=== PATIENT | female | born 1970 | race Caucasian/White ===

== ENCOUNTER 2017-12-20 13:58 | Outpatient (CLI) | payer BC | END 2017-12-20 13:59 | disposition home or self-care (01) | LOC: BICMAMMO 13:58 | PROVIDERS: ATTEND Obstetrics & Gynecology | DX: Z12.31 Encounter for screening mammogram for malignant neoplasm of breast (principal) | CPT/HCPCS: 77063; 77067 ==

== ENCOUNTER 2018-07-06 07:32 | Outpatient (CLI) | payer BC ==
--- NOTE | 2018-07-06 09:20 | CT ---
NONCONTRAST CT LUMBAR SPINE: Date: 07/06/18 HISTORY: Lower back stiffness and bilateral hip pain. History of prior pelvic fracture from fall from horse in 2015. COMPARISON: MRI lumbar spine on 02/21/18. FINDINGS: Retroperitoneal structures demonstrate a grossly normal nonenhanced CT appearance. There is what appears to be a remote wedge-shaped compression fracture of the L4 vertebral body with irregularity of the superior end plate also seen on prior MRI examination. There is also prominent na rrowing of the intervertebral disc spaces at the L4-5 and L5-S1 levels with end plate degenerative ch anges. No subluxation is seen. There is a rounded area of lucency within the L1 vertebral body demons trating characteristics compatible with hemangioma, corresponding to findings on the MRI. L1-2 Level: There is no disc bulge or disc herniation. Central spinal canal and neural foramina are patent. L2-3 Level: There is no significant disc bulge or disc herniation. Central spinal canal and neural foramina are p atent. L3-4 Level: There is mild broad based disc osteophyte complex which results in flattening of the anterior aspect of the thecal sac with mild narrowing of the central spinal canal. There is minimal encroachment on t he right neural foramen. The left neural foramen is patent. L4-5 Level: There is prominent loss of intervertebral disc height with vacuum phenomenon in the intervertebral di sc with associated end plate degenerative changes. There are minimal facet hypertrophic changes prese nt. Mild broad based disc osteophyte complex is noted, but there is no significant narrowing of the c entral spinal canal. There is mild left and minimal right-sided neural foraminal narrowing. L5-S1 Level: There is prominent loss of intervertebral disc height with end plate degenerative changes and vacuum phenomenon in the intervertebral disc. There is mild disc osteophyte complex present at this level, b ut the central spinal canal is patent, and there is only minimal encroachment on each neural foramen. IMPRESSION: 1. Degenerative changes, predominantly involving the lower lumbar spine which do not appear to be si gnificantly progressed when compared to MRI examination on 02/21/18. 2. Findings likely related to remote injury and fracture of the L4 vertebral body. POS: [facility]
== END 2018-07-06 07:33 | disposition home or self-care (01) ==
LOC: TBSIIMAG 07:32
PROVIDERS: ATTEND Neurological Surgery
DX: M54.5 Low back pain (principal); M47.896 Other spondylosis, lumbar region
CPT/HCPCS: 72131

== ENCOUNTER 2018-09-29 09:33 | Outpatient (CLI) | payer BC ==
--- NOTE | 2018-09-29 10:20 | CT ---
CT HEAD WITHOUT CONTRAST: History: CSF leak. Comparison: None available. FINDINGS: Ventricles have normal size and position. There is no mass, hemorrhage, or infarct identified. [place] bill sinuses are well aerated. There is mild mucosal edema in the left maxillary antrum. The mastoid a ir cells are well aerated. IMPRESSION: Unremarkable CT head. POS: H
== END 2018-09-29 09:34 | disposition home or self-care (01) ==
LOC: TBSIIMAG 09:33
PROVIDERS: ATTEND Neurological Surgery
DX: G96.0 Cerebrospinal fluid leak (principal)
CPT/HCPCS: 70450

== ENCOUNTER 2018-12-07 08:56 | Emergency (ER) | payer BC ==
[2018-12-07 09:48] LABS: #Eosinphils 0.2 thou/uL (0.0-0.7); #Lymphocytes 1.3 thou/uL (1.20-3.40); #Monocytes 0.2 thou/uL (0.11-0.59); #Neutrophils 4.7 thou/uL (1.40-6.50); %Basophils 0.5 % (0.0-1.0); %Eosinophils 3.4 % (0.0-10.0); %Lymphocytes 20.1 % (21.0-51.0); %Monocytes 3.4 % (0.0-10.0); %Neutrophils 72.6 % (42.0-75.0); Hemoglobin 13.6 g/dL (12.0-16.0); Mean Corpuscular HGB CONC 32.7 g/dL (32.0-36.0); Mean Corpuscular Hemoglobin 30.9 pg (27.0-31.0); Mean Corpuscular Volume 94.4 fL (78.0-98.0); Mean Platelet Volume 6.8 fL (7.4-10.4); Platelet Count 248 thou/uL (130-400); RBC Distribution Width 11.7 % (11.5-14.5); White Blood Cell (WBC) Count 6.5 thou/uL (4.8-10.8)
[2018-12-07 10:02] LABS: ALT (SGPT) 15 U/L (8-55); AST (SGOT) 16 U/L (5-34); Albumin 3.8 g/dL (3.5-5.0); Alkaline Phosphatase 66 U/L (40-150); Anion Gap 9 mmol/L (10-20); BUN (Urea Nitrogen) 14 mg/dL (7.0-18.7); Bilirubin, Total 0.3 mg/dL (0.2-1.2); Calc. Creatinine Clearance 0 mL/min (70-130); Calcium 9.4 mg/dL (7.8-10.44); Carbon Dioxide 28 mmol/L (22-29); Chloride 105 mmol/L (98-107); Estimated GFR-MDRD Greater than 90; Globulin 2.8 g/dL (2.4-3.5); Glucose 103 mg/dL (70-105); Potassium 4.5 mmol/L (3.5-5.1); Protein, Total 6.6 g/dL (6.0-8.3); Sodium 137 mmol/L (136-145)
[2018-12-07 10:34] LABS: Bilirubin Negative (Negative); Blood, Urine Negative (Negative); Clarity CLEAR (Clear); Glucose, Urine (Dipstick) Negative (Negative); Leukocyte Negative (Negative); Nitrite Negative (Negative); Protein, Urine (Dipstick) Trace mg/dL (Neg-Trace); Specific Gravity, Urine 1.007 (1.002-1.036)
== END 2018-12-07 11:57 | disposition home or self-care (01) ==
LOC: ERS 08:56
DX: I10 Essential (primary) hypertension (principal); F41.9 Anxiety disorder, unspecified; Z79.899 Other long term (current) drug therapy
CPT/HCPCS: 36415; 80053; 81003; 84484; 85025; 87086; 93005

== ENCOUNTER 2018-12-12 11:21 | Emergency (ER) | payer BC ==
[2018-12-12 12:43] LABS: Anion Gap 9 mmol/L (10-20); BUN (Urea Nitrogen) 10 mg/dL (7.0-18.7); Calc. Creatinine Clearance 0 mL/min (70-130); Carbon Dioxide 28 mmol/L (22-29); Chloride 105 mmol/L (98-107); Estimated GFR-MDRD Greater than 90; Glucose 88 mg/dL (70-105); Potassium 4.2 mmol/L (3.5-5.1); Sodium 138 mmol/L (136-145)
== END 2018-12-12 14:00 | disposition home or self-care (01) ==
LOC: ERS 11:21
DX: I10 Essential (primary) hypertension (principal); F41.9 Anxiety disorder, unspecified; M06.9 Rheumatoid arthritis, unspecified; Z79.899 Other long term (current) drug therapy
CPT/HCPCS: 36415; 80048; 99283

== ENCOUNTER 2018-12-22 06:58 | Outpatient (CLI) | payer BC ==
--- NOTE | 2018-12-22 08:59 | ULT ---
CAROTID ULTRASOUND WITH MÉNDEZ SCALE AND DOPPLER DUPLEX COLOR FLOW IMAGING SPECTRAL ANALYSIS PERFORMED: DATE: 12/22/18 CLINICAL INDICATION: History of prior head injury and CSF leak. History of hypertension. FINDINGS: There is scattered mild atherosclerotic calcification of the carotid arteries. PEAK SYSTOLIC VELOCITY (CM/S): Right CCA 86 Left CCA 106 Right ICA 127 Left ICA 158 There is antegrade flow within the visualized bilateral vertebral arteries. IMPRESSION: 1. Moderate (50-69%) stenosis of the right internal carotid artery. 2. Moderate (50-69%) stenosis of the left internal carotid artery. POS: [facility]
--- NOTE | 2018-12-22 16:34 | ULT ---
RENAL ULTRASOUND WITH RENAL DOPPLER STUDY: Indication: Hypertension. FINDINGS: Both kidneys measure 10.3 cm in length. No hydronephrosis or renal mass. Right renal artery/aortic ratio: 3.14. Highest right renal artery velocity measurement: 127 cm/sec. Right arcuate artery resistive index: 0.64. Left renal artery/aortic ratio: 1.11. Highest left renal artery velocity measurement: 45 cm/sec. Left arcuate artery resistive index: 0.66. Incidentally noted on this exam is a hyperechoic mass in the liver measuring 3.5 to 4.5 cm. Recommend further evaluation with pre and post contrast CT abdomen with request for hemangioma protocol to fur ther evaluate this hepatic mass lesion. Code T POS: [facility]
== END 2018-12-22 06:59 | disposition home or self-care (01) ==
LOC: ULT 06:58
PROVIDERS: ATTEND Internal Medicine Nephrology
DX: I10 Essential (primary) hypertension (principal); I65.23 Occlusion and stenosis of bilateral carotid arteries
CPT/HCPCS: 76700; 76770; 93880

== ENCOUNTER 2019-03-15 15:46 | Outpatient (CLI) | payer BC | END 2019-03-15 15:47 | disposition home or self-care (01) | LOC: SDC 15:46 → CTENTCT 15:46 → SDC 15:47 | PROVIDERS: ATTEND Specialist | DX: J30.0 Vasomotor rhinitis (principal) | CPT/HCPCS: 70486 ==

== ENCOUNTER 2019-03-23 10:50 | Day surgery (SDC) | payer BC ==
[2019-03-22 10:27] VITALS: BMI 26.1
[2019-03-23] MEDS ORDERED: Oxymetazoline HCl 0.05% ( 15 ML ) ONE (12:13)
[2019-03-23 13:10] LABS: BHCG - Serum Negative (NEGATIVE); Pregs Control Background? CLEAR/WHITE (CLR/WHITE); Pregs Control Bar Appear? YES (CONTROL BAR)
[2019-03-23] MEDS ORDERED: Lidocaine 1% w/Epinephrine 1:100K 20 ML VIAL ONE (15:06)
[2019-03-23] MEDS ORDERED: Bacitracin Zinc Ointment 30 gm TUBE ONE (15:06)
[2019-03-23] MEDS ORDERED: EPINEPHrine 1 MG/ML AMP ONE (15:06)
[2019-03-23] MEDS ORDERED: Fentanyl 250 MCG/5 ML VIAL ONE (15:15)
[2019-03-23] MEDS ORDERED: Midazolam HCl 2 mg/2 ml Vial ONE ×2 (15:15→15:20)
[2019-03-23] MEDS ORDERED: Triamcinolone 40 MG/ML VIAL ONE (15:55)
--- NOTE | 2019-03-23 16:37 | OP ---
DATE OF PROCEDURE: 03/23/2019 PREOPERATIVE DIAGNOSES: Allergic fungal sinusitis, nasal polyposis, chronic pansinusitis, hypertrophic inferior turbinates. POSTOPERATIVE DIAGNOSES: Allergic fungal sinusitis, nasal polyposis, chronic pansinusitis, hypertrophic inferior turbinates. PROCEDURE PERFORMED: 1. Bilateral nasal endoscopy with nasal polypectomy. 2. Bilateral nasal endoscopy with total ethmoidectomy. 3. Bilateral nasal endoscopy with frontal sinusotomy. 4. Bilateral nasal endoscopy with maxillary antrostomy with removal of tissue. 5. Bilateral nasal endoscopy with sphenoidotomy. 6. Bilateral nasal endoscopy with submucosal resection of inferior turbinates. PROCEDURE IN DETAIL: Bilateral nasal endoscopy with nasal polypectomy: Under endoscopic visualization, the nasal cavity was systematically examined and encountered large inflammatory polyps. These polyps were infiltrated 1% lidocaine with 1:100,000 epinephrine. The polyps were then addressed using the [employer] shaver. Then, the polyps were removed with care not to injure the surrounding normal mucosa. Samples of polyps were taken and sent for histologic evaluation. Bleeding was then controlled. Total ethmoidectomy: The anterior face of the ethmoid bulla was entered and with the micro-debrider, dissection continued posteriorly to the ground lamella. The limits of dissection included the insertion of the middle turbinate, medial orbital wall, and base of skull. We similarly identified the frontal recess and removed shrouds of bone and debris in that region to obtain patency into the agger nasi region and frontal recess. We then entered the ground lamella and its anteroinferior aspect and proceeded posteriorly, opening the posterior ethmoid air-cell system. Again, the limits of dissection included the base of skull and medial orbital wall. Frontal sinusotomy: Following the ethmoidectomy, we then turned our attention to the frontal nasal recess. The agger nasi cells were addressed and the frontal recess was exposed. The natural opening to the frontal sinus was identified. At this point, any obstructing shrouds of mucosa and bony fragments were removed with a curved microdebrider. The wound was then examined and found to be free of any obstructing debris. We then turned our attention to the contralateral side and performed a similar procedure again under endoscopic visualization using a 45-degree scope. We were able to visualize the frontal recess. Obstructing shrouds of mucosa and bone were removed with a microdebrider. The natural os of frontal sinus was identified and enlarged and irrigated. At this point, the frontal sinusotomy was completed and we turned to the next area of concern. Maxillary antrostomy: The uncinate was then identified and the extent of the uncinate was appreciated by out-fracturing the uncinate with the ball-tip probe. We then used the sickle blade to disarticulate the uncinate from the lateral nasal wall. This was then removed with straight biting and upbiting punches with the remaining shrouds of mucosa and bony septum removed with the micro-debrider. The natural os of the maxillary sinus was then identified and enlarged with the maxillary punches and back biting forceps. Sphenoidotomy: The anterior face of the sphenoid was identified and entered in its extreme anteroinferior aspect. A sphenoid punch was then used to enlarge the sphenoidotomy and no injury to the optic nerve or internal carotid artery occurred. Bilateral nasal endoscopy with submucosal resection of inferior turbinates: After consent was obtained, the patient was identified, brought to the operating room, and placed on the operating room table in the supine position. Consent was obtained, notifying the patient of the possibility of additional infections, bleeding, brain injury, and eye/orbital injury. The patient was placed on the operating room table, and general endotracheal anesthesia and intravenous access was obtained. The patient was then positioned, prepped and draped for endoscopic sinus surgery. Nasal preparation included trimming nasal vestibular hairs and spraying in topical Afrin. We then placed Afrin topical solution on nasal pledgets and strategically located them intranasally. The perinasal mucosa was injected with 1% lidocaine with 1:100,000 epinephrine in the submucoperichondrial plane of the septum, lateral nasal wall, and anterior to the uncinate. The patient was then prepped and draped in a sterile fashion and positioned for endoscopic sinus surgery. With the 0-degree endoscope, the patient underwent systematic nasal endoscopy. There were no suspicious internasal masses or lesions identified. We then focused our attention to the osteomeatal complex region under the middle turbinate. The inferior turbinates were visualized with a 0 degree endoscope and outfractured with a Jose L elevator. The inferior medial aspect was cauterized with the electrocautery. Hemostasis was obtained . After adequate airway was established, we turned our attention to the contralateral side and used a similar procedure. Again, a [place] elevator was used to outfracture inferior turbinates under endoscopic visualization. With a suction cautery, the free inferior medial aspect was cauterized under direct visualization along the length of the inferior turbinate. At this point, we then turned our attention to the contralateral side and proceeded with endoscopic sinus surgery. At the completion of the case, Rice keel splints were placed in the ethmoid cavities after the ethmoidectomy. There were no complications. The patient tolerated the procedure well and was discharged to the recovery room in stable condition prior to return to the preoperative day stay with ultimate discharge home. Prescriptions for pain medication and antibiotics were provided. The patient received intramuscular Depo-Medrol during the case. FINDINGS: Polyps and polypoid tissue and allergic fungal mucin were encountered throughout. Surgical splints were placed and treated with topical Kenalog. The patient was awakened and taken to recovery room in stable condition prior to discharge home. Job ID: [id number]
[2019-03-23] MEDS ORDERED: Hydrocodone-Acetamin 15 ML UDCUP ONE (17:39)
--- NOTE | 2019-03-24 21:24 | EKG ---
Test Reason : PREOP Blood Pressure : / mmHG Vent. Rate : 069 BPM Atrial Rate : 069 BPM P-R Int : 134 ms QRS Dur : 076 ms QT Int : 372 ms P-R-T Axes : 004 050 054 degrees QTc Int : 398 ms Normal sinus rhythm Normal ECG When compared with ECG of 07-DEC-2018 09:08, No significant change was found Confirmed by Anna STONER ([id number]) on 03/24/2019 9:24:27 PM Referred By: BHARAT Confirmed By:Anna STONER
== END 2019-03-23 18:20 | disposition home or self-care (01) ==
LOC: SDC 10:50
PROVIDERS: ATTEND Specialist
PROC: 09TL8ZZ Resection of Nasal Turbinate, Via Natural or Artificial Opening Endoscopic (ICD-10-PCS; principal; 2019-03-23)
PROC: 099Q8ZZ Drainage of Right Maxillary Sinus, Via Natural or Artificial Opening Endoscopic (ICD-10-PCS; principal; 2019-03-23)
PROC: 099R8ZZ Drainage of Left Maxillary Sinus, Via Natural or Artificial Opening Endoscopic (ICD-10-PCS; principal; 2019-03-23)
DX: J32.4 Chronic pansinusitis (principal); J34.3 Hypertrophy of nasal turbinates; J45.909 Unspecified asthma, uncomplicated; F41.9 Anxiety disorder, unspecified; F32.9 Major depressive disorder, single episode, unspecified; Z79.82 Long term (current) use of aspirin; Z79.899 Other long term (current) drug therapy; Z88.2 Allergy status to sulfonamides; Z91.038 Other insect allergy status
CPT/HCPCS: 36415; 84703; 85014; 93005; 93010; J0171; J2001; J2250; J3010; J3301

== ENCOUNTER 2019-04-24 07:07 | Outpatient (CLI) | payer BC ==
[2019-04-24] MEDS ORDERED: Iopamidol 370 76% 100 ML VIAL ONE (09:00)
--- NOTE | 2019-04-24 09:22 | CT ---
CT abdomen with and without IV contrast. HISTORY: Liver mass. Hypertension. COMPARISON: Renal sonogram from 12/22/2018. FINDINGS: Lung bases are clear. Within the medial segment left liver lobe, a lobular low-density mass measuring up to 4.3 cm greatest oblique diameter on the axial images shows peripheral nodular enhancement on the contrast enhanced images. Incomplete fill-in on the delayed images is as often see n with very large hepatic hemangiomas. A similar hypodense mass within the lateral aspect anterior segment right liver lobe measures up to 4.0 cm AP diameter on the axial images. A smaller low-density lesion along the periphery of the right liver lobe also likely represents a small hemangioma or cyst. At the inferior pole of the left kidney, approximately one quarter of the overall left renal cortex s hows diffuse decrease in contrast enhancement, including on the arterial phase images, and sagittal atrophy best demonstrated on the coronal images. The arterial supply to this portion of the left kidn ey is not well delineated. The main renal artery is patent. IMPRESSION: Large hepatic hemangiomas account for abnormality of the liver demonstrated on prior sono gram. No aggressive masses are evident. Abnormality at the inferior pole of the left kidney, as detailed above, could very well be due to art erial supply compromise from a small, not currently visible accessory artery or an arterial branch. The suspected arterial compromise is not demonstrated on the current CT. This abnormality, however, m ay be a cause of renal vascular hypertension.
== END 2019-04-24 07:08 | disposition home or self-care (01) ==
LOC: SCSCT 07:07
PROVIDERS: ATTEND Internal Medicine Nephrology
DX: I10 Essential (primary) hypertension (principal); D18.03 Hemangioma of intra-abdominal structures; R93.422 Abnormal radiologic findings on diagnostic imaging of left kidney
CPT/HCPCS: 74170; Q9967

== ENCOUNTER 2020-03-11 08:45 | Outpatient (CLI) | payer BC, OTHER ==
[2020-03-11 14:01] LABS: Hemoglobin 12.7 g/dL (12.0-16.0); Mean Corpuscular HGB CONC 32.5 g/dL (32.0-36.0); Mean Corpuscular Hemoglobin 30.1 pg (27.0-31.0); Mean Corpuscular Volume 92.7 fL (78.0-98.0); Mean Platelet Volume 6.7 fL (7.4-10.4); Platelet Count 279 thou/uL (130-400); RBC Distribution Width 11.6 % (11.5-14.5); Red Blood Cell (RBC) Count 4.24 mill/uL (4.20-5.40); White Blood Cell (WBC) Count 7.3 thou/uL (4.8-10.8)
[2020-03-11 14:12] LABS: BHCG - Serum Negative (NEGATIVE); Pregs Control Background? CLEAR/WHITE (CLR/WHITE); Pregs Control Bar Appear? YES (CONTROL BAR)
[2020-03-11 14:23] LABS: Anion Gap 8 mmol/L (10-20); BUN (Urea Nitrogen) 12 mg/dL (9.8-20.1); Calc. Creatinine Clearance 0 mL/min (70-130); Calcium 8.8 mg/dL (7.8-10.44); Carbon Dioxide 26 mmol/L (22-29); Chloride 106 mmol/L (98-107); Estimated GFR-MDRD 87; Glucose 95 mg/dL (70-105); Potassium 4.2 mmol/L (3.5-5.1); Sodium 136 mmol/L (136-145)
[2020-03-12 11:09] LABS: SARS-CoV-2 MS2 Positive; SARS-CoV-2 N Gene Negative; SARS-CoV-2 S Gene Negative; SARS-CoV-2 orf1ab Negative
== END 2020-03-11 08:46 | disposition home or self-care (01) ==
LOC: LABBT 08:45
PROVIDERS: ATTEND Neurological Surgery
DX: Z01.812 Encounter for preprocedural laboratory examination (principal); Z11.59 Encounter for screening for other viral diseases; M54.5 Low back pain
CPT/HCPCS: 80048; 84703; 85027; 87635; U0003

== ENCOUNTER 2020-03-13 07:13 | Day surgery (SDC) | payer BC ==
[2020-03-11 13:17] VITALS: BMI 29.2
--- NOTE | 2020-03-12 13:29 | HP ---
HISTORY OF PRESENT ILLNESS: Ms. Jay is a pleasant 49-year-old woman, known to us for prior evaluation of axial back pain and a combination of most left L5 radicular pains, which have worsened since our last visit in 2018 and they also includes a right-sided L5 pattern. She has been attempting to treat this with physical therapy and SI joint injections recently with Dr. Vargas, though she feels that did not help her adequately. She additionally reports a popping sensation in the upper buttock region that could be related to SI joint disease or pseudarthrosis at L5 transverse processes as noted on the 2018 CT scan. She now has a new MRI scan from [facility], that reveals continued advancement of her degenerative disk disease at L4-L5 with no other major change. Examination is deferred for tele health visit. PAST MEDICAL HISTORY: Significant for; 1. Nephropathy. 2. Migraines. 3. Hypertension. 4. Seasonal allergies. 5. Asthma. 6. Osteoarthritis. 7. Anxiety. PAST SURGICAL HISTORY: 1. Endoscopic sinus surgery. 2. Unspecified neck surgery. 3. Tonsillectomy. 4. [place] tooth extraction. CURRENT MEDICATIONS: 1. Spironolactone. 2. Metoprolol. 3. Zyrtec. 4. Lisinopril. 5. Duloxetine. 6. Methocarbamol. 7. Advair Diskus inhaler as needed. ALLERGIES: SULFA DRUGS. ASSESSMENT: Lumbar spondylolisthesis and back pain. PLAN: Dr. Meier met with the patient, reviewed imaging and advocated for an L4-S1 decompression and fusion. He explained to the patient the risks, benefits, and alternatives to the procedure. The patient expressed understanding and elected to move forward with surgery as discussed. I do believe the patient is mentally competent and capable of making medical decisions for herself. We will move forward with surgery as planned. Job ID: [id number]
[2020-03-13] MEDS ORDERED: Midazolam HCl 2 mg/2 ml Vial ONE ×2 (08:50→09:30)
[2020-03-13] MEDS ORDERED: Fentanyl 100 MCG/2 ML VIAL ONE ×4 (09:02→12:44)
[2020-03-13] MEDS ORDERED: EPINEPHrine 1 MG/ML AMP ONE (09:06)
[2020-03-13] MEDS ORDERED: Bupivacaine PF 0.5% 30 ML VIAL ONE (09:07)
[2020-03-13] MEDS ORDERED: Famotidine/PF 20 mg/2ml Vial ONE (09:27)
[2020-03-13] MEDS ORDERED: PHENYLEPHRINE-NS 100 MCG/ML 10 ML SYRINGE ONE ×2 (11:13→12:07)
[2020-03-13] MEDS ORDERED: SUGAMMADEX SODIUM 200 MG/2 ML VIAL ONE (11:36)
[2020-03-13] MEDS ORDERED: HYDROmorphone 2 MG/ML VIAL ONE (11:41)
[2020-03-13] MEDS ORDERED: Meperidine HCl/PF 25 MG/ML VIAL SLOW IVP PRN (11:45)
[2020-03-13] MEDS ORDERED: Promethazine HCl 25 MG/ML VIAL IM PRN (11:45)
[2020-03-13] MEDS ORDERED: Promethazine HCl 25 MG/ML VIAL SLOW IVP PRN (11:45)
[2020-03-13] MEDS ORDERED: HYDROmorphone 2 MG/ML VIAL SLOW IVP PRN (11:45)
[2020-03-13] MEDS ORDERED: Ondansetron HCl/PF 4 MG/2 ML Vial IVP PRN (11:45)
[2020-03-13] MEDS ORDERED: Ondansetron PF 4 MG/2 ML Vial ONE (12:07)
[2020-03-13] MEDS ORDERED: PROPOFOL 200 MG/20 ML VIAL ONE (12:07)
[2020-03-13] MEDS ORDERED: EPHEDRINE 25 MG/5 ML SYRINGE ONE (12:07)
[2020-03-13] MEDS ORDERED: Dexamethasone 20 MG/5 ML VIAL ONE (12:07)
[2020-03-13] MEDS ORDERED: Ketorolac Tromethamine 30 MG/ML VIAL ONE (12:07)
[2020-03-13] MEDS ORDERED: Lidocaine 1% PF 5 ML VIAL ONE (12:07)
[2020-03-13] MEDS ORDERED: Metoclopramide HCl 10 MG/2 ML VIAL ONE (12:07)
[2020-03-13] MEDS ORDERED: Rocuronium Bromide 10 MG/ML (10ML VIAL) ONE (12:07)
[2020-03-13] MEDS ORDERED: Promethazine HCl 25 MG/ML VIAL ONE (12:32)
[2020-03-13] MEDS ORDERED: HYDROcodone/Acetaminophen 5/325 mg Tablet ONE (13:36)
--- NOTE | 2020-03-13 15:38 | OP ---
DATE OF PROCEDURE: 03/13/2020 CLOTH DRIER: Sherman Sultana PA-C INDICATION: Pain. DIAGNOSIS: Advanced degenerative disk disease with low back pain. PROCEDURES PERFORMED: L4 through S1 bilateral facetectomies, L4 through S1 bilateral posterolateral instrumented fusion, placement of allograft, and placement of autograft. ANESTHESIA: General. DESCRIPTION OF PROCEDURE: The patient was brought into the operating room and placed under general anesthesia. She was flipped from the supine to prone position on the operating room table. A linear incision was planned over the L4 through S1 segments. After prepping and draping and after an appropriate preoperative pause, the incision was created. The soft tissues were swept away from midline. A self-retaining retractor was placed. After confirming the appropriate level with C-arm fluoroscopy, the hemilaminectomies and medial facetectomies were performed bilaterally at L4-L5, L5-S1. The L4, L5, and S1 pedicles could then be palpated bilaterally. With the aid of C-arm fluoroscopy, pedicle screws were placed within the pedicles. An intraoperative 3D CT scan was then performed, which revealed excellent placement of hardware. Rods were then placed across the screw heads and final tightened. The wound was then irrigated. Hemostasis was maintained throughout. The wound was then closed in anatomic layers and a pressure dressing was applied. There were no known procedural complications. Job ID: [id number]
== END 2020-03-13 16:00 | disposition home or self-care (01) ==
LOC: SDC 07:13
PROVIDERS: ATTEND Neurological Surgery
PROC: 0SG107J Fusion of 2 or more Lumbar Vertebral Joints with Autologous Tissue Substitute, Posterior Approach, Anterior Column, Open Approach (ICD-10-PCS; principal; 2020-03-13)
PROC: 0SG10AJ Fusion of 2 or more Lumbar Vertebral Joints with Interbody Fusion Device, Posterior Approach, Anterior Column, Open Approach (ICD-10-PCS; principal; 2020-03-13)
PROC: 0SG307J Fusion of Lumbosacral Joint with Autologous Tissue Substitute, Posterior Approach, Anterior Column, Open Approach (ICD-10-PCS; principal; 2020-03-13)
PROC: 0SB40ZZ Excision of Lumbosacral Disc, Open Approach (ICD-10-PCS; principal; 2020-03-13)
DX: M51.36 Other intervertebral disc degeneration, lumbar region (principal); M43.16 Spondylolisthesis, lumbar region; I10 Essential (primary) hypertension; J45.909 Unspecified asthma, uncomplicated; F41.9 Anxiety disorder, unspecified; M19.90 Unspecified osteoarthritis, unspecified site; Z79.899 Other long term (current) drug therapy; Z88.2 Allergy status to sulfonamides
CPT/HCPCS: 76000; J0171; J0690; J1100; J1170; J1885; J2001; J2250; J2405; J2550; J2704; J2765; J3010; S0020; S0028

== ENCOUNTER 2020-03-23 11:00 | Emergency (ER) | payer BC ==
[2020-03-23] MEDS ORDERED: Famotidine/PF 20 mg/2ml Vial ONE (11:55)
[2020-03-23] MEDS ORDERED: diphenhydrAMINE 50 MG/ML VIAL ONE (11:55)
[2020-03-23] MEDS ORDERED: methylPREDNISolone Sod Succ/PF 125 MG/2 ML VIAL ONE (13:45)
[2020-03-23] MEDS ORDERED: Fentanyl 100 MCG/2 ML VIAL ONE (13:45)
== END 2020-03-23 15:01 | disposition home or self-care (01) ==
LOC: ERS 11:00
DX: L27.1 Localized skin eruption due to drugs and medicaments taken internally (principal); T36.1X5A Adverse effect of cephalosporins and other beta-lactam antibiotics, initial encounter; I10 Essential (primary) hypertension; M06.9 Rheumatoid arthritis, unspecified; F41.9 Anxiety disorder, unspecified; N02.8 Recurrent and persistent hematuria with other morphologic changes; Z79.899 Other long term (current) drug therapy
CPT/HCPCS: 96374; 96375; J1200; J2930; J3010; S0028

== ENCOUNTER 2022-06-17 12:33 | Outpatient (CLI) | payer BC ==
[2022-06-17] MEDS ORDERED: Magnevist 469MG/ML 20 ML VIAL ONE ×2 (14:15)
== END 2022-06-17 12:34 | disposition home or self-care (01) ==
LOC: TBSIIMAG 12:33
PROVIDERS: ATTEND Neurological Surgery
DX: M47.26 Other spondylosis with radiculopathy, lumbar region (principal); M47.16 Other spondylosis with myelopathy, lumbar region; M43.14 Spondylolisthesis, thoracic region; Z98.890 Other specified postprocedural states
CPT/HCPCS: 72157; 72158; A9579

== ENCOUNTER 2022-06-25 08:06 | Outpatient (CLI) | payer BC | END 2022-06-25 08:07 | disposition home or self-care (01) | LOC: CT 08:06 | PROVIDERS: ATTEND Neurological Surgery | DX: M47.16 Other spondylosis with myelopathy, lumbar region (principal); Z98.1 Arthrodesis status | CPT/HCPCS: 72131 ==

== ENCOUNTER 2022-08-26 14:48 | Outpatient (CLI) | payer BC | END 2022-08-26 14:49 | disposition home or self-care (01) | LOC: BICMAMMO 14:48 | PROVIDERS: ATTEND Internal Medicine | DX: Z13.820 Encounter for screening for osteoporosis (principal) | CPT/HCPCS: 77080 ==

== ENCOUNTER 2023-10-27 16:00 | Outpatient (CLI) | payer BC | END 2023-10-27 16:01 | disposition home or self-care (01) | LOC: SLEEPLAB 16:00 | PROVIDERS: ATTEND Student in an Organized Health Care Education/Training Program | DX: G47.33 Obstructive sleep apnea (adult) (pediatric) (principal); R53.83 Other fatigue; R51.9 Headache, unspecified; R06.83 Snoring; I10 Essential (primary) hypertension | CPT/HCPCS: 95800 ==